=== PATIENT | male | born 1955 | race Caucasian/White ===

== ENCOUNTER 2017-12-11 12:40 | Emergency (ER) | payer BC ==
[2017-12-11 12:52] VITALS: TEMP 97.8
[2017-12-11] MEDS ORDERED: DIPH,PERTUS(ACELL)TETVAC-LF 0.5 ML VIAL IM ONE (13:00)
[2017-12-11] MEDS ORDERED: HYDROcodone/APAP 5-325MG 1 EACH TAB PO STA (13:00)
--- NOTE | 2017-12-11 13:29 | XR ---
EXAMINATION TYPE: XR finger LT DATE OF EXAM: 12/11/2017 COMPARISON: NONE HISTORY: Pain in the third digit after slamming the digit in a door. TECHNIQUE: Frontal, lateral and oblique views of the third digit were obtained. FINDINGS: There is focal subcutaneous edema from laceration of the third digit with surrounding soft tissue swelling and subtle high density may represent hemorrhage. No radiopaque foreign body is seen. No evidence of acute fracture or dislocation. Osseous deformity of the distal tuft of the fourth dig it may be sequela of prior trauma or congenital. IMPRESSION: Soft tissue swelling and sequela of laceration of the distal third digit with no evidence of acute fracture or dislocation.
--- NOTE | 2017-12-11 13:42 | ED ---
Upper Extremity HPI - General Chief Complaint: Extremity Injury, Upper Stated Complaint: Middle Finger Lac Time Seen by Provider: 12/11/17 12:56 Source: patient Mode of arrival: ambulatory Limitations: no limitations - History of Present Illness Initial Comments: 62-year-old male patient presents to the emergency department today for evaluation of laceration injury to the left middle finger. Patient states on 11 AM he was working with his backhoe when he got his finger in the door. Patient was able to get the bleeding under control. He is able to move the finger. He denies any other injuries. Denies any numbness or tingling to the hand or finger. Is unsure when his last tetanus vaccine was given. Denies any use of anticoagulants other than a baby aspirin. Patient denies any headache, neck pain, back pain, chest pain, shortness of breath, dizziness, weakness, abdominal pain, nausea, vomiting, or difficulties with bowel movements or urination. - Related Data Previous Rx's Medication Instructions Recorded Cephalexin [Keflex] 500 mg PO Q6H #28 cap 12/11/17 Allergies Allergy/AdvReac Type Severity Reaction Status Date / Time No Known Allergies Allergy Verified 12/11/17 12:52 Review of Systems ROS Statement: Those systems with pertinent positive or pertinent negative responses have been documented in the HPI. ROS Other: All systems not noted in ROS Statement are negative. Past Medical History Past Medical History: No Reported History History of Any Multi-Drug Resistant Organisms: None Reported Additional Past Surgical History / Comment(s): colonoscopy Past Psychological History: No Psychological Hx Reported Smoking Status: Former smoker Past Alcohol Use History: Occasional Past Drug Use History: None Reported General Exam Limitations: no limitations General appearance: alert, in no apparent distress, other (This is a well- developed, well-nourished adult male patient in no acute distress. Vital signs upon presentation are temperature 97.8F, pulse 90, respirations 20, blood pressure 139/85, pulse ox 95% on room air.) Eye exam: Present: normal appearance, PERRL, EOMI. Absent: scleral icterus, conjunctival injection, periorbital swelling ENT exam: Present: normal exam, mucous membranes moist Respiratory exam: Present: normal lung sounds bilaterally. Absent: respiratory distress, wheezes, rales, rhonchi, stridor Cardiovascular Exam: Present: regular rate, normal rhythm, normal heart sounds. Absent: systolic murmur, diastolic murmur, rubs, gallop, clicks Extremities exam: Present: full ROM, tenderness (Tenderness over the distal tip of the left middle finger), normal capillary refill, other (There is a flap- like laceration approximately 3 cm noted to the palmar aspect of the distal tip of the left middle finger. There is no nailbed involvement. Neurovascular status is intact. Patient has full range of motion of the finger.). Absent: normal inspection, pedal edema, joint swelling, calf tenderness Neurological exam: Present: alert, oriented X3, CN II-XII intact Psychiatric exam: Present: normal affect, normal mood Skin exam: Present: warm, dry, intact, normal color. Absent: rash Course Vital Signs 12/11/17 12:49 Temperature 97.8 F Pulse Rate 90 Respiratory 20 Rate Blood Pressure 139/85 O2 Sat by Pulse 95 Oximetry Procedures - Laceration Laceration #1 Consent Obtained: verbal consent Time Out Performed: Yes Indication: laceration Site: hand (Left middle finger) Size (cm): 3 Description: flap Depth: simple, single layer Anesthetic Used: lidocaine 1% Anesthesia Technique: nerve block Amount (mls): 9 Pre-repair: wound explored, irrigated extensively Type of Sutures: nylon Size of Sutures: 5-0 Number of Sutures: 9 Technique: simple, interrupted Patient Tolerated Procedure: well, no complications Medical Decision Making - Medical Decision Making 62-year-old male patient presented to the emergency department today for evaluation of a laceration to the distal third digit on the left hand. Physical examination did reveal 3 cm flap-like laceration to the palmar aspect of the distal third digit on the left hand. Patient did have full range of motion against resistance. Patient had full feeling to the finger. Cap refills less than 3 seconds. Patient did not have any other injuries. X-ray of the finger showed no acute fracture or dislocation. We did irrigate and cleanse the wound. He was repaired as documented. Patient was given wound care instructions. Instructed to return here in 7 days for suture removal. He will be given a prescription of Keflex for prevention of infection. He is instructed to return here immediately for any new, worsening, or concerning symptoms. He verbalizes understanding and agrees with this plan. - Radiology Data Radiology results: report reviewed, image reviewed 3 views of the left third digit were obtained. There is focal subcutaneous edema from laceration of the third digit with surrounding soft tissue swelling and subtle high density may represent hemorrhage. No radiopaque foreign body is seen. No evidence of acute fracture or dislocation. Osseous deformity of the distal tuft of the fourth digit may be subtle of prior trauma or congenital. Impression by Dr. Mcfadden shows soft tissue swelling and supple a laceration of the distal third digit with no evidence of acute fracture or dislocation. Disposition Clinical Impression: Finger laceration Disposition: HOME SELF-CARE Condition: Good Instructions: Care For Your Stitches (ED), Finger Laceration (ED) Additional Instructions: Keep wound clean and dry. Cleanse twice daily with warm water and antibacterial soap. Monitor for signs or symptoms of infection including but not limited to redness, swelling, drainage of pus, fever, or chills. Return in 7 days to have the stitches removed. Follow-up with her primary care physician for recheck in 1-2 days. Complete antibiotic prescription as directed. Return here immediately for any new, worsening, or concerning symptoms. Prescriptions: Cephalexin [Keflex] 500 mg PO Q6H #28 cap Referrals: Eric Fonseca DO [Primary Care Provider] - 1-2 days Time of Disposition: 14:22
[2017-12-11 14:34] VITALS: BP 142/90; PULSE 80; RESP 18
== END 2017-12-11 14:33 | disposition home or self-care (01) ==
LOC: EC 12:40
DX: S61.213A Laceration without foreign body of left middle finger without damage to nail, initial encounter (principal); Z87.891 Personal history of nicotine dependence; Z23 Encounter for immunization; W23.0XXA Caught, crushed, jammed, or pinched between moving objects, initial encounter; Y93.89 Activity, other specified
CPT/HCPCS: 12002; 90471; 90715; 99283

== ENCOUNTER → 2024-02-03 | Outpatient (CLI) | payer MEDICARE ==
--- NOTE | 2024-02-03 14:47 | XR ---
EXAMINATION TYPE: XR chest 2V DATE OF EXAM: 02/03/2024 2:43 PM CLINICAL INDICATION:Male, 68 years old with history of R05.9 COUGH, UNSPECIFIED; [facility] COMPARISON: None TECHNIQUE: XR chest 2V Frontal and lateral views of the chest. FINDINGS: Lungs/Pleura: Bibasilar atelectasis. No evidence for pneumothorax, pleural effusion or focal consolid ation. Pulmonary vascularity: Unremarkable. Heart/mediastinum: Cardiomediastinal silhouette is unremarkable. Musculoskeletal: No acute osseous pathology. IMPRESSION: No acute cardiopulmonary disease/process.
== END | disposition home or self-care (01) ==
LOC: RADXRMAIN 14:29
PROVIDERS: ATTEND Family Medicine
DX: R05.9 Cough, unspecified (principal)
CPT/HCPCS: 71046